=== PATIENT | male | born 1985 | race African-American/Black ===

== ENCOUNTER 2017-09-03 19:47 | Emergency (ER) | payer OTHER ==
[~2017-09-03] VITALS: Ht 193 cm; Wt 124.7 kg
[~2017-09-03 19:47] MED LIST: ACYCLOVIR 400400 MG PO; MULTI VITAMIN1 EACH PO; PERCOCET 5-3251 EACH PO
[2017-09-03] MEDS ORDERED: NAPROSYN500 MG PO (20:55)
[2017-09-03] MEDS ORDERED: TRAMADOL 50 MG50 MG PO (20:55)
[2017-09-03 21:35] VITALS: BP 126/53
== END 2017-09-03 21:35 | disposition home or self-care (01) ==
LOC: ER 19:47
DX: S93.492A Sprain of other ligament of left ankle, initial encounter (principal); X58.XXXA Exposure to other specified factors, initial encounter; Y93.61 Activity, american tackle football; Y92.89 Other specified places as the place of occurrence of the external cause; Y99.8 Other external cause status